=== PATIENT | male | born 1960 | race African-American/Black ===

== ENCOUNTER 2017-04-12 16:33 | Inpatient (IN) | payer OTHER ==
[2017-04-12 18:27] VITALS: BMI 34.0
--- NOTE | 2017-04-12 20:30 | HP ---
CIWA Score - CIWA Score Nausea/Vomitin-Int. 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 SHE REPORTS SHE COMPLETED DETOX AND REHAB LAST IN [place]. LONGEST PERIOD SOBER HAS BEEN 3 YEARS. Exam Limitations: No Limitations - Ebola screening Have you traveled outside of the country in the last 21 days: No Have you had contact with anyone from an Ebola affected area: No Have you been sick,other than usual withdrawal symptoms: No Do you have a fever: No - Review of Systems Constitutional: Loss of Appetite EENT: reports: Nose Congestion Respiratory: reports: Wheezing Cardiac: reports: No Symptoms Reported GI: reports: Diarrhea : reports: No Symptoms Reported Musculoskeletal: reports: No Symptoms Reported Integumentary: reports: No Symptoms Reported Neuro: reports: No Symptoms reported Endocrine: reports: No Symptoms Reported Hematology: reports: No Symptoms Reported Psychiatric: reports: Judgement Intact, Mood/Affect Appropiate, other ( SCHIZOPHRENIA) Other Systems: Reviewed and Negative Patient History - Patient Medical History Hx Anemia: No Hx Asthma: Yes Hx Chronic Obstructive Pulmonary Disease (COPD): No Hx Cancer: No Hx Cardiac Disorders: No Hx Congestive Heart Failure: No Hx Hypertension: Yes Hx Hypercholesterolemia: No Hx Pacemaker: No HX Cerebrovascular Accident: No Hx Seizures: No Hx Dementia: No Hx Diabetes: No Hx Gastrointestinal Disorders: No Hx Liver Disease: Yes (HEP C ) Hx Genitourinary Disorders: No Hx Sexually Transmitted Disorders: No Hx Renal Disease (ESRD): No Hx Thyroid Disease: No Hx Human Immunodeficiency Virus (HIV): No Hx Hepatitis C: Yes (NOT TREATED ) Hx Depression: No Hx Suicide Attempt: No Hx Bipolar Disorder: No Hx Schizophrenia: Yes - Patient Surgical History Past Surgical History: Yes Hx Neurologic Surgery: Yes (SKULL AND JAW FX REPAIR ) Anesthesia Reaction: No - PPD History Previous Implant?: No PPD to be Administered?: Yes - Reproductive History Patient is a Female of Child Bearing Age (11 -55 yrs old): No - Smoking Cessation Smoking history: Current every day smoker Have you smoked in the past 12 months: Yes Aproximately how many cigarettes per day: 3 Initiated information on smoking cessation: Yes 'Breaking Loose' booklet given: 04/12/17 - Substance & Tx. History Hx Alcohol Use: Yes Hx Substance Use: Yes Substance Use Type: Alcohol, Cocaine, Marijuana Hx Substance Use Treatment: Yes (DETOX AND REHAB IN [place] IN 2016) - Substances Abused Alcohol Route: Oral Frequency: Daily Amount used: 1/5 VODKA+ ONE 6 PACK OF BEER Age of first use: 22 Date of Last Use: 04/11/17 Crack Route: Smoking Frequency: Daily Amount used: $100 Age of first use: 45 Date of Last Use: 04/11/17 Marijuana/Hashish Route: Oral Frequency: Daily Amount used: $20 Age of first use: 17 Date of Last Use: 04/11/17 Family Disease History - Family Disease History Family Disease History: Heart Disease: Mother (), CA: Father ( ) , Other: Sister (COCAINE DEPENDENCE) Admission Physical Exam [facility] - Vital Signs Vital Signs: Vital Signs - 24 hr 04/12/17 18:23 Temperature 97.2 F L Pulse Rate 70 Respiratory 20 Rate Blood Pressure 138/86 - Physical General Appearance: Yes: Disheveled HEENTM: Yes: Hearing grossly Normal, Normocephalic, Normal Voice Respiratory: Yes: Chest Non-Tender, Lungs Clear, Normal Breath Sounds, No Respiratory Distress, No Accessory Muscle Use Neck: Yes: No masses,lesions,Nodules, Trachea in good position Breast: Yes: Breast Exam Deferred Cardiology: Yes: Regular Rhythm, Regular Rate Abdominal: Yes: Normal Bowel Sounds, Non Tender Genitourinary: Yes: Other (NO COMPLAINTS REPORTED) Back: Yes: Normal Inspection Musculoskeletal: Yes: full range of Motion, Gait Steady, Pelvis Stable Extremities: Yes: Normal Inspection, Normal Range of Motion, Non-Tender Neurological: Yes: Fully Oriented, Alert, Normal Mood/Affect, Normal Response Integumentary: Yes: Normal Color, Dry, Warm Lymphatic: Yes: Within Normal Limits - Diagnostic (1) Alcohol dependence with uncomplicated withdrawal Current Visit: Yes Status: Chronic (2) Cocaine dependence, uncomplicated Current Visit: Yes Status: Chronic (3) Cannabis dependence Current Visit: Yes Status: Chronic (4) Hypertension Current Visit: Yes Status: Chronic (5) Nicotine dependence Current Visit: Yes Status: Chronic (6) Asthma Current Visit: Yes Status: Chronic (7) Hepatitis C Current Visit: Yes Status: Chronic Cleared for Admission [facility] - Detox or Rehab [facility] Level of Care: Medically Managed Detox Regimen/Protocol: Librium [facility] Breath Alcohol Content Breath Alcohol Content: 0 Urine Drug Screen - Results Drug Screen Negative: No Urine Drug Screen Results: THC-Marijuana, HILL-Cocaine
[2017-04-12] MEDS ORDERED: P-EPHED 60MG/TRIPROLIDI 2.5MG TABLET PO PRN (20:48)
[2017-04-12] MEDS ORDERED: guaiFENesin/D-METHORPHAN HB 10 ML UNIT-DOSE CUPS PO PRN (20:48)
[2017-04-12] MEDS ORDERED: MAGNESIUM CITRATE 300 ML BOTTLE PO PRN (20:48)
[2017-04-12] MEDS ORDERED: ACETAMINOPHEN 325 MG TABLET (FP) PO PRN (20:48)
[2017-04-12] MEDS ORDERED: hydrOXYzine PAMOATE 50 MG CAPSULE (FP) PO PRN (20:48)
[2017-04-12] MEDS ORDERED: NICOTINE POLACRILEX 2 MG GUM BUC PRN (20:48)
[2017-04-12] MEDS ORDERED: chlordiazePOXIDE HCL 25 MG CAPSULE PO PRN (20:48)
[2017-04-12] MEDS ORDERED: IBUPROFEN 400 MG TABLET (FP) PO PRN (20:48)
[2017-04-12] MEDS ORDERED: MAGNESIUM HYDROX 2400MG/30ML ORAL SUSPENSION 30 ML CUP PO PRN (20:48)
[2017-04-12] MEDS ORDERED: MAG HYDROX/AL HYDROX/SIMETH 30 ML UNIT-DOSE CUP PO PRN (20:48)
[2017-04-12] MEDS ORDERED: chlordiazePOXIDE HCL 25 MG CAPSULE PO ONE (20:48)
[2017-04-12] MEDS ORDERED: MENTHOL/PHENOL 1 EACH UD MM PRN (20:48)
[2017-04-12] MEDS ORDERED: LOPERAMIDE HCL 2 MG CAPSULE PO PRN (20:48)
[2017-04-12] MEDS: chlordiazePOXIDE HCL 25 MG CAPSULE PO SCH (22:43)
[2017-04-12] MEDS: diphenhydrAMINE HCL 50 MG CAPSULE PO PRN (22:44)
[2017-04-12] MEDS: THIAMINE HCL 100 MG TABLET (FP) PO SCH (22:44)
[2017-04-12 23:36] LABS: URINE APPEARANCE SLCLOUDY; URINE BILIRUBIN NEGATIVE (NEGATIVE); URINE BLOOD NEGATIVE (NEGATIVE); URINE COLOR YELLOW; URINE GLUCOSE (UA) NEGATIVE (NEGATIVE); URINE KETONE NEGATIVE (NEGATIVE); URINE NITRITE POSITIVE (NEGATIVE)
[2017-04-12 23:39] LABS: URINE PROTEIN 1+ (NEGATIVE)
[2017-04-12 23:44] LABS: URINE BACTERIA MODERATE /hpf (NONE SEEN); URINE MUCUS RARE; URINE RBC 1 /hpf (0-3)
[2017-04-13] MEDS: chlordiazePOXIDE HCL 25 MG CAPSULE PO SCH ×4 (06:12→22:38)
[2017-04-13] MEDS: ALBUTEROL SO4 18 GM HFA INHALER IH PRN ×2 (06:15→22:39)
[2017-04-13] MEDS: NICOTINE 14 MG/24 HOURS TOPICAL PATCH TD SCH (10:54)
[2017-04-13] MEDS: PRENATAL VITAMINS W/ FOLIC ACID TABLET (FP) PO SCH (10:55)
[2017-04-13 11:03] LABS: MCH 29.5 pg (25.7-33.7); MCHC 32.4 g/dl (32.0-35.9); MEAN CELL VOLUME 90.9 fl (80-96); MEAN PLT VOLUME 7.9 fl (7.5-11.1); PLATELET COUNT 274 K/MM3 (134-434); RDW 12.5 % (11.9-15.9); WHITE BLOOD COUNT 6.9 K/mm3 (4.0-10.0)
[2017-04-13 11:16] LABS: ALBUMIN 3.5 g/dl (3.4-5.0); ALK PHOS 88 U/L (45-117); ANION GAP 9 (8-16); BILIRUBIN,TOTAL 0.6 mg/dL (0.2-1.0); CALCIUM 9.1 mg/dL (8.5-10.1); CO2 26 mmol/L (21-32); CREATININE 0.9 mg/dL (0.7-1.3); GLUCOSE,RANDOM 110 mg/dL (74-106); SGOT/AST 60 U/L (15-37); SGPT/ALT 90 U/L (12-78); TOT PROT 7.3 g/dl (6.4-8.2)
[2017-04-13 12:07] LABS: URINE LEUK ESTERASE TRACE (NEGATIVE)
--- NOTE | 2017-04-13 12:52 | EKG ---
Test Reason : Blood Pressure : / mmHG Vent. Rate : 063 BPM Atrial Rate : 063 BPM P-R Int : 196 ms QRS Dur : 094 ms QT Int : 440 ms P-R-T Axes : 056 004 007 degrees QTc Int : 450 ms NORMAL SINUS RHYTHM SEPTAL INFARCT , AGE UNDETERMINED ABNORMAL ECG NO PREVIOUS ECGS AVAILABLE Confirmed by KWAKU CALVERT MD ([id number]) on 04/13/2017 12:52:04 PM Referred By: Confirmed By:KWAKU CALVERT MD
[2017-04-13 13:25] LABS: HIV 1 & 2 AB NEGATIVE; HIV 1 AGp24 NEGATIVE
--- NOTE | 2017-04-13 15:56 | PN ---
[facility] CIWA - CIWA Score Nausea/Vomitin Muscle Tremors: 3 Anxiety: 3 Agitation: 3 Paroxysmal Sweats: 1-Minimal Palms Moist Orientation: 0-Oriented Tacttile Disturbances: 1-Very Mild Itch/Numbness Auditory Disturbances: 1-Very Mild Visual Disturbances: 0-None Headache: 2-Mild CIWA-Ar Total Score: 17 BHS Progress Note (SOAP) Subjective: alert,irritable,anxious,interrupted sleep,tremor Objective: 04/13/17 15:57 Vital Signs Temperature 97.5 F L 04/13/17 13:51 Pulse Rate 83 04/13/17 13:51 Respiratory Rate 18 04/13/17 13:51 Blood Pressure 151/78 04/13/17 13:51 O2 Sat by Pulse Oximetry (%) ekg inverted t in 3 no chest pain,no sob,no dizziness Laboratory Last Values WBC 6.9 K/mm3 (4.0-10.0) 04/13/17 08:00 RBC 4.53 M/mm3 (4.00-5.60) 04/13/17 08:00 Hgb 13.4 GM/dL (11.7-16.9) 04/13/17 08:00 Hct 41.2 % (35.4-49) 04/13/17 08:00 MCV 90.9 fl (80-96) 04/13/17 08:00 MCH 29.5 pg (25.7-33.7) 04/13/17 08:00 MCHC 32.4 g/dl (32.0-35.9) 04/13/17 08:00 RDW 12.5 % (11.9-15.9) 04/13/17 08:00 Plt Count 274 K/MM3 (134-434) 04/13/17 08:00 MPV 7.9 fl (7.5-11.1) 04/13/17 08:00 Sodium 140 mmol/L (136-145) 04/13/17 08:00 Potassium 4.1 mmol/L (3.5-5.1) 04/13/17 08:00 Chloride 105 mmol/L (98-107) 04/13/17 08:00 Carbon Dioxide 26 mmol/L (21-32) 04/13/17 08:00 Anion Gap 9 (8-16) 04/13/17 08:00 BUN 15 mg/dL (7-18) 04/13/17 08:00 Creatinine 0.9 mg/dL (0.7-1.3) 04/13/17 08:00 Creat Clearance w eGFR > 60 (>60) 04/13/17 08:00 Random Glucose 110 mg/dL (74-106) H 04/13/17 08:00 Calcium 9.1 mg/dL (8.5-10.1) 04/13/17 08:00 Total Bilirubin 0.6 mg/dL (0.2-1.0) 04/13/17 08:00 AST 60 U/L (15-37) H 04/13/17 08:00 ALT 90 U/L (12-78) H 04/13/17 08:00 Alkaline Phosphatase 88 U/L (45-117) 04/13/17 08:00 Total Protein 7.3 g/dl (6.4-8.2) 04/13/17 08:00 Albumin 3.5 g/dl (3.4-5.0) 04/13/17 08:00 Urine Color Yellow 04/12/17 23:00 Urine Appearance Slcloudy 04/12/17 23:00 Urine pH 5.0 (5.0-8.0) 04/12/17 23:00 Ur Specific [place] 1.015 (1.005-1.025) 04/12/17 23:00 Urine Protein 1+ (NEGATIVE) H 04/12/17 23:00 Urine Glucose (UA) Negative (NEGATIVE) 04/12/17 23:00 Urine Ketones Negative (NEGATIVE) 04/12/17 23:00 Urine Blood Negative (NEGATIVE) 04/12/17 23:00 Urine Nitrite Positive (NEGATIVE) 04/12/17 23:00 Urine Bilirubin Negative (NEGATIVE) 04/12/17 23:00 Urine Urobilinogen 2.0 mg/dL (0.2-1.0) 04/12/17 23:00 Ur Leukocyte Esterase Trace (NEGATIVE) H 04/12/17 23:00 Urine RBC 1 /hpf (0-3) 04/12/17 23:00 Ur Epithelial Cells Rare /hpf (FEW) 04/12/17 23:00 Urine Bacteria Moderate /hpf (NONE SEEN) 04/12/17 23:00 Urine Mucus Rare 04/12/17 23:00 RPR Titer Nonreactive (NONREACTIVE) 04/13/17 08:00 HIV 1&2 Antibody Screen Negative 04/13/17 08:00 HIV P24 Antigen Negative 04/13/17 08:00 Assessment: 04/13/17 15:58 withdrawal symptom Plan: continue detox
--- NOTE | 2017-04-13 17:59 | CONSULT ---
[facility] Psychiatric Consult - Data Date of interview: 04/13/17 Admission source: [facility] Identifying data: Readmission to [facility] [place] for this 56 y/o AA male seeking detox treatment on for alcohol,cocaine and cannabis dependence.Patient is single without children,homeless,unemployed and supported on SSD benefits. Substance Abuse History: Discussed with the patient in this interview.Agrees with this report. Smoking Cessation. Smoking history: Current every day smoker. Have you smoked in the past 12 months: Yes. Aproximately how many cigarettes per day: 3. Initiated information on smoking cessation: Yes. ' Breaking Loose' booklet given: 04/12/17. - Substance & Tx. History. Hx Alcohol Use: Yes. Hx Substance Use: Yes. Substance Use Type: Alcohol, Cocaine , Marijuana. Hx Substance Use Treatment: Yes (DETOX AND REHAB IN [place] IN 2016). - Substances Abused. Alcohol. Route: Oral. Frequency: Daily. Amount used: 1/5 VODKA+ ONE 6 PACK OF BEER. Age of first use: 22. Date of Last Use: 04/11/17. Crack. Route: Smoking. Frequency: Daily. Amount used: $100. Age of first use: 45. Date of Last Use: 04/11/17. Marijuana/Hashish. Route: Oral. Frequency: Daily. Amount used: $20. Age of first use: 17. Date of Last Use: 04/11/17 Medical History: Hypertension,hepatitis C,bronchial asthma and a history of neurosurgery (skull fracture) + orthosurgery (jaw).No allergies reported. Psychiatric History: Diagnosed with Schizophrenia.Prescribed risperdal + paxil ( 3 mg/hs and 10 mg respectively).Mr Orr admits to past psychiatric hospitalizations at [facility] in [facility].Enrolled in psychiatric OPD care at same institution.Date of last intake of medications : undetermined.Patient reports one suicide attempt (1999) via overdose with " heart " medications (trigger : of mother). Physical/Sexual Abuse/Trauma History: Patient denies history of abuse. Additional Comment: Urine Drug Screen Results: THC-Marijuana, HILL-Cocaine.Noted. Mental Status Exam - Mental Status Exam Alert and Oriented to: Time, Place, Person Cognitive Function: Grossly Intact Patient Appearance: Unkempt, Disheveled (obese) Mood: Withdrawn Affect: Mood Congruent Patient Behavior: Passive, Sedated (mildly sedated), Fatigued, Cooperative Speech Pattern: Delayed, Slurred (but coherent) Voice Loudness: Moderately Soft/Quiet Thought Process: Goal Oriented Thought Disorder: Not Present Hallucinations: Denies Suicidal Ideation: Denies Homicidal Ideation: Denies Insight/Judgement: Poor Sleep: Poorly (wants benadryl), Difficulty falling asleep Gait/Station: Other (not observed ; patient in bed through interview) Psychiatric Findings - Problem List ([place] 1, 2,3) (1) Alcohol dependence with uncomplicated withdrawal Current Visit: Yes Status: Acute (2) Cannabis dependence Current Visit: Yes Status: Acute (3) Cocaine dependence, uncomplicated Current Visit: Yes Status: Acute (4) Nicotine dependence Current Visit: Yes Status: Acute (5) History of schizophrenia Current Visit: Yes Status: Chronic Comment: On medications. (6) Asthma Current Visit: Yes Status: Chronic (7) Hepatitis C Current Visit: Yes Status: Chronic (8) Hypertension Current Visit: Yes Status: Chronic (9) Insomnia Current Visit: Yes Status: Acute - Initial Treatment Plan Initial Treatment Plan: Psychoeducation.Detoxification.Medications : risperdal 1mg po bid + paxil 10 mg po daily.Side effects/benefits discussed with the patient.He agrees to resume these medications.Observation.Pharmacy claims : not available.
[2017-04-13] MEDS: risperiDONE 1 MG TABLET (FP) PO SCH (22:38)
[2017-04-13] MEDS: THIAMINE HCL 100 MG TABLET (FP) PO SCH (22:38)
[2017-04-14] MEDS: chlordiazePOXIDE HCL 25 MG CAPSULE PO SCH ×3 (06:00→17:59)
[2017-04-14] MEDS: PRENATAL VITAMINS W/ FOLIC ACID TABLET (FP) PO SCH (10:59)
[2017-04-14] MEDS: NICOTINE 14 MG/24 HOURS TOPICAL PATCH TD SCH (11:00)
[2017-04-14] MEDS: risperiDONE 1 MG TABLET (FP) PO SCH ×2 (11:00→23:06)
[2017-04-14] MEDS: PARoxetine HCL 10 MG TABLET (FP) PO SCH (11:00)
[2017-04-14] MEDS: ALBUTEROL SO4 18 GM HFA INHALER IH PRN (11:04)
--- NOTE | 2017-04-14 15:30 | PN ---
S CIWA - CIWA Score Nausea/Vomitin Muscle Tremors: 3 Anxiety: 3 Agitation: 2 Paroxysmal Sweats: 1-Minimal Palms Moist Orientation: 0-Oriented Tacttile Disturbances: 1-Very Mild Itch/Numbness Auditory Disturbances: 1-Very Mild Visual Disturbances: 0-None Headache: 2-Mild CIWA-Ar Total Score: 16 BHS Progress Note (SOAP) Subjective: ALERT,IRRITABLE,ANXIOUS,INTERRUPTED SLEEP,TREMOR Objective: 04/14/17 15:27 Vital Signs Temperature 98.1 F 04/14/17 11:18 Pulse Rate 96 H 04/14/17 11:18 Respiratory Rate 20 04/14/17 11:18 Blood Pressure 119/86 04/14/17 11:18 O2 Sat by Pulse Oximetry (%) Laboratory Last Values WBC 6.9 K/mm3 (4.0-10.0) 04/13/17 08:00 RBC 4.53 M/mm3 (4.00-5.60) 04/13/17 08:00 Hgb 13.4 GM/dL (11.7-16.9) 04/13/17 08:00 Hct 41.2 % (35.4-49) 04/13/17 08:00 MCV 90.9 fl (80-96) 04/13/17 08:00 MCH 29.5 pg (25.7-33.7) 04/13/17 08:00 MCHC 32.4 g/dl (32.0-35.9) 04/13/17 08:00 RDW 12.5 % (11.9-15.9) 04/13/17 08:00 Plt Count 274 K/MM3 (134-434) 04/13/17 08:00 MPV 7.9 fl (7.5-11.1) 04/13/17 08:00 Sodium 140 mmol/L (136-145) 04/13/17 08:00 Potassium 4.1 mmol/L (3.5-5.1) 04/13/17 08:00 Chloride 105 mmol/L (98-107) 04/13/17 08:00 Carbon Dioxide 26 mmol/L (21-32) 04/13/17 08:00 Anion Gap 9 (8-16) 04/13/17 08:00 BUN 15 mg/dL (7-18) 04/13/17 08:00 Creatinine 0.9 mg/dL (0.7-1.3) 04/13/17 08:00 Creat Clearance w eGFR > 60 (>60) 04/13/17 08:00 Random Glucose 110 mg/dL (74-106) H 04/13/17 08:00 Calcium 9.1 mg/dL (8.5-10.1) 04/13/17 08:00 Total Bilirubin 0.6 mg/dL (0.2-1.0) 04/13/17 08:00 AST 60 U/L (15-37) H 04/13/17 08:00 ALT 90 U/L (12-78) H 04/13/17 08:00 Alkaline Phosphatase 88 U/L (45-117) 04/13/17 08:00 Total Protein 7.3 g/dl (6.4-8.2) 04/13/17 08:00 Albumin 3.5 g/dl (3.4-5.0) 04/13/17 08:00 Urine Color Yellow 04/12/17 23:00 Urine Appearance Slcloudy 04/12/17 23:00 Urine pH 5.0 (5.0-8.0) 04/12/17 23:00 Ur Specific [place] 1.015 (1.005-1.025) 04/12/17 23:00 Urine Protein 1+ (NEGATIVE) H 04/12/17 23:00 Urine Glucose (UA) Negative (NEGATIVE) 04/12/17 23:00 Urine Ketones Negative (NEGATIVE) 04/12/17 23:00 Urine Blood Negative (NEGATIVE) 04/12/17 23:00 Urine Nitrite Positive (NEGATIVE) 04/12/17 23:00 Urine Bilirubin Negative (NEGATIVE) 04/12/17 23:00 Urine Urobilinogen 2.0 mg/dL (0.2-1.0) 04/12/17 23:00 Ur Leukocyte Esterase Trace (NEGATIVE) H 04/12/17 23:00 Urine RBC 1 /hpf (0-3) 04/12/17 23:00 Ur Epithelial Cells Rare /hpf (FEW) 04/12/17 23:00 Urine Bacteria Moderate /hpf (NONE SEEN) 04/12/17 23:00 Urine Mucus Rare 04/12/17 23:00 RPR Titer Nonreactive (NONREACTIVE) 04/13/17 08:00 HIV 1&2 Antibody Screen Negative 04/13/17 08:00 HIV P24 Antigen Negative 04/13/17 08:00 Assessment: 04/14/17 15:29 WITHDRAWAL SYMPTOM Plan: CONTINUE DETOX
[2017-04-14] MEDS: chlordiazePOXIDE 5 MG CAPSULE PO SCH (23:06)
[2017-04-14] MEDS: THIAMINE HCL 100 MG TABLET (FP) PO SCH (23:07)
[2017-04-15] MEDS: chlordiazePOXIDE 5 MG CAPSULE PO SCH ×3 (06:00→17:15)
[2017-04-15] MEDS: risperiDONE 1 MG TABLET (FP) PO SCH ×2 (11:06→22:40)
[2017-04-15] MEDS: PRENATAL VITAMINS W/ FOLIC ACID TABLET (FP) PO SCH (11:06)
[2017-04-15] MEDS: PARoxetine HCL 10 MG TABLET (FP) PO SCH (11:06)
[2017-04-15] MEDS: NICOTINE 14 MG/24 HOURS TOPICAL PATCH TD SCH (11:07)
[2017-04-15] MEDS: ALBUTEROL SO4 18 GM HFA INHALER IH PRN (11:07)
--- NOTE | 2017-04-15 11:40 | PN ---
BHS Progress Note (SOAP) Subjective: agitation sweats Objective: 04/15/17 11:38 Vital Signs Temperature 97.9 F 04/15/17 11:23 Pulse Rate 98 H 04/15/17 11:23 Respiratory Rate 20 04/15/17 11:23 Blood Pressure 148/89 04/15/17 11:23 O2 Sat by Pulse Oximetry (%) aaox3 ambulating no acute distress Assessment: 04/15/17 11:39 mild withdrawal sx Plan: continue detox increase fluids d/c in am
[2017-04-15] MEDS: chlordiazePOXIDE HCL 10 MG CAPSULE PO SCH (22:40)
[2017-04-15] MEDS: THIAMINE HCL 100 MG TABLET (FP) PO SCH (22:40)
[2017-04-15] MEDS: diphenhydrAMINE HCL 50 MG CAPSULE PO PRN (22:41)
[2017-04-16] MEDS: chlordiazePOXIDE HCL 10 MG CAPSULE PO SCH ×2 (06:26→10:48)
--- NOTE | 2017-04-16 09:10 | DS ---
[facility] Detox Discharge Summary Admission Date: 04/12/17 Discharge Date: 04/16/17 - History Present History: Alcohol Dependence, Cannabis Dependence, Cocaine Dependence - Physical Exam Results Vital Signs: Vital Signs Temperature 98.0 F 04/16/17 06:55 Pulse Rate 84 04/16/17 06:55 Respiratory Rate 18 04/16/17 06:55 Blood Pressure 119/82 04/16/17 06:55 O2 Sat by Pulse Oximetry (%) - Treatment Hospital Course: Detox Protocol Followed, Detoxed Safely, Responded well, Discharged Condition Good, Rehab Referral Accepted - Medication Discharge Medications: Ambulatory Orders Diphenhydramine HCl [Benadryl -] 25 mg PO HS 04/12/17 Paroxetine HCl [Paxil -] 10 mg PO DAILY 04/12/17 Risperidone [Risperdal] 4 mg PO DAILY 04/12/17 Paroxetine HCl [Paxil -] 10 mg PO DAILY #30 tablet 04/14/17 Risperidone [Risperdal] 3 mg PO HS #30 tablet 04/14/17 - AMA Did Patient Leave Against Medical Advice: No
[2017-04-16] MEDS: PRENATAL VITAMINS W/ FOLIC ACID TABLET (FP) PO SCH (09:33)
[2017-04-16] MEDS: risperiDONE 1 MG TABLET (FP) PO SCH (09:33)
[2017-04-16] MEDS: PARoxetine HCL 10 MG TABLET (FP) PO SCH (09:33)
[2017-04-16] MEDS: NICOTINE 14 MG/24 HOURS TOPICAL PATCH TD SCH (09:34)
[2017-04-16 10:44] VITALS: BP 117/80; PULSE 97; TEMP 98.2
[2017-04-16 10:59] LABS: URINE WBC 26 /hpf (3-5)
== END 2017-04-16 10:40 | disposition home or self-care (01) | DRG 774 ==
LOC: YASAS 16:33 → Y6N 21:12
PROVIDERS: ADMIT Internal Medicine; ATTEND Internal Medicine
PROC: HZ2ZZZZ Detoxification Services for Substance Abuse Treatment (ICD-10-PCS; principal; 2017-04-12)
DX: F10.230 Alcohol dependence with withdrawal, uncomplicated (principal); F14.20 Cocaine dependence, uncomplicated; F12.20 Cannabis dependence, uncomplicated; F17.210 Nicotine dependence, cigarettes, uncomplicated; F20.9 Schizophrenia, unspecified; G47.00 Insomnia, unspecified; B18.2 Chronic viral hepatitis C; I10 Essential (primary) hypertension; J45.909 Unspecified asthma, uncomplicated
CPT/HCPCS: 36415; 80053; 81003; 81015; 85027; 86593; 87389; 93005; 93010; J2794

== ENCOUNTER 2017-05-28 21:55 | Inpatient (IN) | payer OTHER ==
[2017-05-28 21:59] VITALS: BMI 32.4
--- NOTE | 2017-05-28 23:34 | HP ---
CIWA Score - CIWA Score Nausea/Vomitin Muscle Tremors: 4-Moderate,w/Arms Extend Anxiety: 4-Mod. Anxious/Guarded Agitation: 5 Paroxysmal Sweats: 1-Minimal Palms Moist Orientation: 0-Oriented Tacttile Disturbances: 3-Moderate Itch/Numb/Burn Auditory Disturbances: 3-Moderate Harsh/Frighten Visual Disturbances: 3-Moderate Sensitivity Headache: 3-Moderate CIWA-Ar Total Score: 29 Admission ROS BHS - HPI Chief Complaint: c/o withdrawal sx's and alcohol dependence Allergies/Adverse Reactions: Allergies Allergy/AdvReac Type Severity Reaction Status Date / Time No Known Allergies Allergy Verified 04/12/17 20:27 History of Present Illness: 56 Y.O. MALE WITH ALCOHOLISM HERE FOR ADMISSION TO DETOX TXMENT. SELF REFERRED LAST HERE IN MARCH. REPORTS LONGEST CLEAN TIME 3 YEARS. Exam Limitations: No Limitations - Ebola screening Have you traveled outside of the country in the last 21 days: No Have you had contact with anyone from an Ebola affected area: No Have you been sick,other than usual withdrawal symptoms: No Do you have a fever: No - Review of Systems Constitutional: Malaise EENT: reports: Throat Pain Respiratory: reports: No Symptoms reported Cardiac: reports: No Symptoms Reported GI: reports: Diarrhea : reports: No Symptoms Reported Musculoskeletal: reports: No Symptoms Reported Integumentary: reports: No Symptoms Reported Neuro: reports: No Symptoms reported Endocrine: reports: No Symptoms Reported Hematology: reports: No Symptoms Reported Psychiatric: reports: No Sypmtoms Reported Other Systems: Reviewed and Negative Patient History - Patient Medical History Hx Anemia: No Hx Asthma: Yes Hx Chronic Obstructive Pulmonary Disease (COPD): No Hx Cancer: No Hx Cardiac Disorders: No Hx Congestive Heart Failure: No Hx Hypertension: Yes Hx Hypercholesterolemia: No Hx Pacemaker: No HX Cerebrovascular Accident: No Hx Seizures: No Hx Dementia: No Hx Diabetes: No Hx Gastrointestinal Disorders: No Hx Liver Disease: Yes (HEP C ) Hx Genitourinary Disorders: No Hx Sexually Transmitted Disorders: No Hx Renal Disease (ESRD): No Hx Thyroid Disease: No Hx Human Immunodeficiency Virus (HIV): No Hx Hepatitis C: Yes (NOT TREATED ) Hx Depression: Yes Hx Suicide Attempt: No Hx Bipolar Disorder: No Hx Schizophrenia: Yes Other Medical History: DENIES - Patient Surgical History Past Surgical History: Yes Hx Neurologic Surgery: Yes (SKULL AND JAW FX REPAIR ) Hx Cataract Extraction: No Hx Cardiac Surgery: No Hx Lung Surgery: No Hx Breast Surgery: No Hx Breast Biopsy: No Hx Abdominal Surgery: No Hx Appendectomy: No Hx Cholecystectomy: No Hx Genitourinary Surgery: No Hx Section: No Hx Orthopedic Surgery: No Anesthesia Reaction: No - PPD History Previous Implant?: Yes Documented Results: Negative w/proof Implanted On Prior [facility] Admission?: Yes Date: 04/14/17 Results: OMM PPD to be Administered?: No - Smoking Cessation Smoking history: Current every day smoker Have you smoked in the past 12 months: Yes Aproximately how many cigarettes per day: 10 Cigars Per Day: 0 Hx Chewing Tobacco Use: No Initiated information on smoking cessation: Yes 'Breaking Loose' booklet given: 05/28/17 - Substance & Tx. History Hx Alcohol Use: Yes Hx Substance Use: Yes Substance Use Type: Cocaine, Marijuana Hx Substance Use Treatment: Yes ([facility]) - Substances Abused VODKA Route: Oral Frequency: Daily Amount used: 2 PINTS Age of first use: 14 Date of Last Use: 05/27/17 Family Disease History - Family Disease History Family Disease History: Heart Disease: Mother (), CA: Father ( ) , Other: Sister (COCAINE DEPENDENCE) Admission Physical Exam S - Vital Signs Vital Signs: Vital Signs - 24 hr 05/28/17 21:55 Temperature 98.2 F Pulse Rate 83 Respiratory 16 Rate Blood Pressure 128/79 - Physical General Appearance: Yes: Appropriately Dressed, Mild Distress, Tremorous, Anxious HEENTM: Yes: EOMI, Normocephalic, Normal Voice, [place], Pharynx Normal Respiratory: Yes: Chest Non-Tender, Lungs Clear, Normal Breath Sounds, No Respiratory Distress, No Accessory Muscle Use Neck: Yes: No masses,lesions,Nodules, Supple, Trachea in good position Breast: Yes: Breast Exam Deferred Cardiology: Yes: Regular Rhythm, Regular Rate, S1, S2 Abdominal: Yes: Normal Bowel Sounds, Non Tender, Protuberent Genitourinary: Yes: Within Normal Limits Back: Yes: Within Normal Limits Musculoskeletal: Yes: full range of Motion, Gait Steady Extremities: Yes: Normal Range of Motion, Non-Tender, Tremors Neurological: Yes: Alert, Motor Strength 5/5 Integumentary: Yes: Normal Color, Dry, Warm Lymphatic: Yes: Within Normal Limits - Diagnostic (1) Alcohol dependence with uncomplicated withdrawal Current Visit: No Status: Chronic (2) Cannabis dependence Current Visit: No Status: Chronic (3) Cocaine dependence, uncomplicated Current Visit: No Status: Chronic (4) Nicotine dependence Current Visit: No Status: Chronic Qualifiers: Nicotine product type: cigarettes Substance use status: uncomplicated Qualified Code(s): F17.210 - Nicotine dependence, cigarettes, uncomplicated (5) Asthma Current Visit: No Status: Chronic Qualifiers: Asthma severity: mild Asthma persistence: intermittent Asthma complication type: uncomplicated Qualified Code(s): J45.20 - Mild intermittent asthma, uncomplicated (6) Hepatitis C Current Visit: No Status: Chronic Qualifiers: Viral hepatitis chronicity: chronic Hepatic coma status: without hepatic coma Qualified Code(s): B18.2 - Chronic viral hepatitis C (7) Hypertension Current Visit: No Status: Chronic Qualifiers: Hypertension type: essential hypertension Qualified Code(s): I10 - Essential (primary) hypertension Cleared for Admission BHS - Detox or Rehab [facility] Level of Care: Medically Managed Detox Regimen/Protocol: Librium [facility] Breath Alcohol Content Breath Alcohol Content: 0 Urine Drug Screen - Results Drug Screen Negative: No Urine Drug Screen Results: THC-Marijuana, HILL-Cocaine, BZO-Benzodiazepines
[2017-05-28] MEDS ORDERED: IBUPROFEN 400 MG TABLET (FP) PO PRN (23:50)
[2017-05-28] MEDS ORDERED: chlordiazePOXIDE HCL 25 MG CAPSULE PO PRN (23:50)
[2017-05-28] MEDS ORDERED: MENTHOL/PHENOL 1 EACH UD MM PRN (23:50)
[2017-05-28] MEDS ORDERED: hydrOXYzine PAMOATE 50 MG CAPSULE (FP) PO PRN (23:50)
[2017-05-28] MEDS ORDERED: NICOTINE POLACRILEX 2 MG GUM BC PRN (23:50)
[2017-05-28] MEDS ORDERED: MAGNESIUM HYDROX 2400MG/30ML ORAL SUSPENSION 30 ML CUP PO PRN (23:50)
[2017-05-28] MEDS ORDERED: chlordiazePOXIDE HCL 25 MG CAPSULE PO ONE (23:50)
[2017-05-28] MEDS ORDERED: LOPERAMIDE HCL 2 MG CAPSULE PO PRN (23:50)
[2017-05-28] MEDS ORDERED: MAGNESIUM CITRATE 300 ML BOTTLE PO PRN (23:50)
[2017-05-28] MEDS ORDERED: P-EPHED 60MG/TRIPROLIDI 2.5MG TABLET PO PRN (23:50)
[2017-05-28] MEDS ORDERED: guaiFENesin/D-METHORPHAN HB 10 ML UNIT-DOSE CUPS PO PRN (23:50)
[2017-05-28] MEDS ORDERED: ACETAMINOPHEN 325 MG TABLET (FP) PO PRN (23:50)
[2017-05-28] MEDS ORDERED: MAG HYDROX/AL HYDROX/SIMETH 30 ML UNIT-DOSE CUP PO PRN (23:50)
[2017-05-28] MEDS ORDERED: ALBUTEROL SO4 2.5/IPRATROPIUM 0.5 INH SOL 3 ML VIAL.NEB. NEB PRN (23:53)
[2017-05-29] MEDS: chlordiazePOXIDE HCL 25 MG CAPSULE PO SCH ×5 (00:43→22:20)
[2017-05-29 10:10] LABS: MCH 29.9 pg (25.7-33.7); MCHC 32.7 g/dl (32.0-35.9); MEAN CELL VOLUME 91.5 fl (80-96); MEAN PLT VOLUME 8.1 fl (7.5-11.1); PLATELET COUNT 268 K/MM3 (134-434); RDW 12.7 % (11.9-15.9); WHITE BLOOD COUNT 6.6 K/mm3 (4.0-10.0)
[2017-05-29] MEDS: PRENATAL VITAMINS W/ FOLIC ACID TABLET (FP) PO SCH (10:32)
[2017-05-29] MEDS: NICOTINE 14 MG/24 HOURS TOPICAL PATCH TD SCH (10:33)
[2017-05-29 10:43] LABS: ALBUMIN 3.4 g/dl (3.4-5.0); ALK PHOS 102 U/L (45-117); ANION GAP 8 (8-16); BILIRUBIN,TOTAL 0.8 mg/dL (0.2-1.0); CALCIUM 8.7 mg/dL (8.5-10.1); CO2 24 mmol/L (21-32); CREATININE 0.9 mg/dL (0.7-1.3); GLUCOSE,RANDOM 133 mg/dL (74-106); SGOT/AST 35 U/L (15-37); SGPT/ALT 79 U/L (12-78); TOT PROT 7.1 g/dl (6.4-8.2)
[2017-05-29 10:56] LABS: HIV 1 & 2 AB NEGATIVE; HIV 1 AGp24 NEGATIVE
--- NOTE | 2017-05-29 12:49 | EKG ---
Test Reason : Blood Pressure : / mmHG Vent. Rate : 075 BPM Atrial Rate : 075 BPM P-R Int : 184 ms QRS Dur : 088 ms QT Int : 428 ms P-R-T Axes : 048 007 019 degrees QTc Int : 477 ms NORMAL SINUS RHYTHM NORMAL ECG WHEN COMPARED WITH ECG OF 12-APR-2017 21:39, CRITERIA FOR SEPTAL INFARCT ARE NO LONGER PRESENT Confirmed by SAI NGUYỄN MD ([id number]) on 05/29/2017 12:49:10 PM Referred By: Confirmed By:SAI NGUYỄN MD
--- NOTE | 2017-05-29 13:00 | PN ---
S CIWA - CIWA Score Nausea/Vomitin-No Nausea/No Vomiting Muscle Tremors: 4-Moderate,w/Arms Extend Anxiety: 4-Mod. Anxious/Guarded Agitation: 4-Moderately Restless Paroxysmal Sweats: 3 Orientation: 0-Oriented Tacttile Disturbances: 0-None Auditory Disturbances: 0-None Visual Disturbances: 0-None Headache: 1-Very Mild CIWA-Ar Total Score: 16 BHS Progress Note (SOAP) Subjective: irritable agitation sweats shakes chills restless interrupted sleep Objective: 05/29/17 12:59 Vital Signs Temperature 97.5 F L 05/29/17 10:00 Pulse Rate 86 05/29/17 10:00 Respiratory Rate 18 05/29/17 10:00 Blood Pressure 143/90 05/29/17 10:00 O2 Sat by Pulse Oximetry (%) Laboratory Tests 05/29/17 05/29/17 05/29/17 07:00 07:00 07:00 WBC 6.6 RBC 4.49 Hgb 13.4 Hct 41.1 MCV 91.5 MCH 29.9 MCHC 32.7 RDW 12.7 Plt Count 268 MPV 8.1 Sodium 142 Potassium 3.6 Chloride 110 H Carbon Dioxide 24 Anion Gap 8 BUN 11 D Creatinine 0.9 Creat Clearance w eGFR > 60 Random Glucose 133 H D Calcium 8.7 Total Bilirubin 0.8 D AST 35 D ALT 79 H Alkaline Phosphatase 102 Total Protein 7.1 Albumin 3.4 RPR Titer Nonreactive HIV 1&2 Antibody Screen HIV P24 Antigen 05/29/17 07:00 WBC RBC Hgb Hct MCV MCH MCHC RDW Plt Count MPV Sodium Potassium Chloride Carbon Dioxide Anion Gap BUN Creatinine Creat Clearance w eGFR Random Glucose Calcium Total Bilirubin AST ALT Alkaline Phosphatase Total Protein Albumin RPR Titer HIV 1&2 Antibody Screen Negative HIV P24 Antigen Negative aaox3 ambulating no acute distress Assessment: 05/29/17 12:59 withdrawal sx Plan: continue detox increase fluids
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
--- NOTE | 2017-05-29 19:18 | PN ---
[facility] Progress Note Note: Psychiatry Attending's note : Chart reviewed.Previous records revisited. 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 Consult by GRIS Bhatti : appreciated.Discussed with telegraphic typewriter mechanic. Met with patient at bedside this evening.Found resting comfortably in bed. Awake.No complaints offered.Feels well.Cooperative with interviewer. Denies hallucinations.Mr Orr denies suicidal or homicidal ideation. No intent or plan.Agreable with current medication regimen (paxil + risperdal). I agree with GRIS Bhatti's findings + treatment plan.Will follow progress.. Risperdal will be titrated up to 3 mg orally at bedtime.Normal vitals.
[2017-05-29] MEDS: risperiDONE 1 MG TABLET (FP) PO SCH (22:20)
[2017-05-29] MEDS: THIAMINE HCL 100 MG TABLET (FP) PO SCH (22:20)
[2017-05-29 22:25] LABS: URINE APPEARANCE CLOUDY; URINE BILIRUBIN NEGATIVE (NEGATIVE); URINE BLOOD NEGATIVE (NEGATIVE); URINE COLOR YELLOW; URINE GLUCOSE (UA) NEGATIVE (NEGATIVE); URINE KETONE NEGATIVE (NEGATIVE); URINE NITRITE NEGATIVE (NEGATIVE); URINE PROTEIN NEGATIVE (NEGATIVE); URINE UROBILINOGEN NEGATIVE mg/dL (0.2-1.0)
[2017-05-30] MEDS: chlordiazePOXIDE HCL 25 MG CAPSULE PO SCH ×3 (05:33→17:39)
[2017-05-30] MEDS ORDERED: PARoxetine HCL 10 MG TABLET (FP) PO SCH (10:00)
[2017-05-30] MEDS: PRENATAL VITAMINS W/ FOLIC ACID TABLET (FP) PO SCH (10:38)
[2017-05-30] MEDS: NICOTINE 14 MG/24 HOURS TOPICAL PATCH TD SCH (10:40)
[2017-05-30] MEDS ORDERED: PNEUMOCOCCAL 23 VACCINE 0.5 ML VIAL IM ONE (12:00)
[2017-05-30] MEDS ORDERED: PNEUMOC 13-VAL CONJ-DIP CRM/PF 0.5 ML DISP.SYRIN IM ONE (12:00)
--- NOTE | 2017-05-30 12:37 | PN ---
S CIWA - CIWA Score Nausea/Vomitin-No Nausea/No Vomiting Muscle Tremors: 4-Moderate,w/Arms Extend Anxiety: 2 Agitation: 3 Paroxysmal Sweats: 3 Orientation: 0-Oriented Tacttile Disturbances: 0-None Auditory Disturbances: 0-None Visual Disturbances: 0-None Headache: 0-None Present CIWA-Ar Total Score: 12 BHS Progress Note (SOAP) Subjective: tired sweats interrupted sleep irritable Objective: 05/30/17 12:36 Vital Signs Temperature 96.6 F L 05/30/17 09:29 Pulse Rate 101 H 05/30/17 09:29 Respiratory Rate 18 05/30/17 09:29 Blood Pressure 138/81 05/30/17 09:29 O2 Sat by Pulse Oximetry (%) Laboratory Tests 05/29/17 05/29/17 05/29/17 07:00 07:00 07:00 WBC 6.6 RBC 4.49 Hgb 13.4 Hct 41.1 MCV 91.5 MCH 29.9 MCHC 32.7 RDW 12.7 Plt Count 268 MPV 8.1 Sodium 142 Potassium 3.6 Chloride 110 H Carbon Dioxide 24 Anion Gap 8 BUN 11 D Creatinine 0.9 Creat Clearance w eGFR > 60 Random Glucose 133 H D Calcium 8.7 Total Bilirubin 0.8 D AST 35 D ALT 79 H Alkaline Phosphatase 102 Total Protein 7.1 Albumin 3.4 Urine Color Urine Appearance Urine pH Ur Specific [place] Urine Protein Urine Glucose (UA) Urine Ketones Urine Blood Urine Nitrite Urine Bilirubin Urine Urobilinogen RPR Titer Nonreactive HIV 1&2 Antibody Screen HIV P24 Antigen 05/29/17 05/29/17 07:00 15:00 WBC RBC Hgb Hct MCV MCH MCHC RDW Plt Count MPV Sodium Potassium Chloride Carbon Dioxide Anion Gap BUN Creatinine Creat Clearance w eGFR Random Glucose Calcium Total Bilirubin AST ALT Alkaline Phosphatase Total Protein Albumin Urine Color Yellow Urine Appearance Cloudy Urine pH 5.0 Ur Specific [place] 1.009 Urine Protein Negative Urine Glucose (UA) Negative Urine Ketones Negative Urine Blood Negative Urine Nitrite Negative Urine Bilirubin Negative Urine Urobilinogen Negative RPR Titer HIV 1&2 Antibody Screen Negative HIV P24 Antigen Negative aaox3 ambulating no acute distress Assessment: 05/30/17 12:36 withdrawal sx Plan: continue detox increase fluids
[2017-05-30 13:32] LABS: URINE LEUK ESTERASE 1+ (NEGATIVE)
[2017-05-30 13:58] LABS: URINE APPEARANCE CLOUDY; URINE BILIRUBIN NEGATIVE (NEGATIVE); URINE BLOOD 1+ (NEGATIVE); URINE COLOR YELLOW; URINE GLUCOSE (UA) NEGATIVE (NEGATIVE); URINE KETONE NEGATIVE (NEGATIVE); URINE NITRITE POSITIVE (NEGATIVE); URINE PROTEIN NEGATIVE (NEGATIVE); URINE UROBILINOGEN NEGATIVE mg/dL (0.2-1.0)
[2017-05-30 14:08] LABS: URINE BACTERIA RARE /hpf (NONE SEEN); URINE MUCUS RARE; URINE RBC 1 /hpf (0-3); URINE WBC 289 /hpf (3-5)
--- NOTE | 2017-05-30 17:29 | PN ---
S Progress Note Note: Spoke to patient near bedside. Pt. reported positive effect after receiving Risperdal 1mg and Paxil 10mg. Cost Analyst asked patient if he would like a prescription for risperdal 1mg and paxil 10mg. Pt. replied, " no, i will receive my prescription from my out patient psychiatrist after discharge from here." Will continue to monitor patient.
[2017-05-30 19:35] LABS: URINE LEUK ESTERASE 3+ (NEGATIVE)
[2017-05-30 22:06] LABS: URINE RBC 0-2 /hpf (0-3); URINE WBC 40-60 (0-2)
[2017-05-30 22:07] LABS: URINE BACTERIA MANY /hpf (NEGATIVE)
[2017-05-30] MEDS: risperiDONE 1 MG TABLET (FP) PO SCH (22:27)
[2017-05-30] MEDS: chlordiazePOXIDE 5 MG CAPSULE PO SCH (22:27)
[2017-05-30] MEDS: THIAMINE HCL 100 MG TABLET (FP) PO SCH (22:27)
[2017-05-31] MEDS: chlordiazePOXIDE 5 MG CAPSULE PO SCH (06:22)
[2017-05-31 06:39] VITALS: BP 134/75; PULSE 93; TEMP 98.1
--- NOTE | 2017-05-31 09:33 | DS ---
[facility] Detox Discharge Summary Admission Date: 05/28/17 Discharge Date: 05/31/17 - History Present History: Alcohol Dependence, Cannabis Dependence, Cocaine Dependence Additional Comments: Patient is moving to [place] today, refuses aftercar requesting accelearted detox protocol to be discharged today, has not been taking libirum as prescribed , medically stable, risks of not taking medication discussed including seziures , dts and . patient aware Pertinent Past History: no h/o seizures, insomnia, anxieyt, depression, nicotine dependence - Physical Exam Results Vital Signs: Vital Signs Temperature 98.1 F 05/31/17 06:38 Pulse Rate 93 H 05/31/17 06:38 Respiratory Rate 20 05/31/17 06:38 Blood Pressure 134/75 05/31/17 06:38 O2 Sat by Pulse Oximetry (%) Laboratory Tests 05/29/17 05/29/17 05/29/17 07:00 07:00 07:00 WBC 6.6 RBC 4.49 Hgb 13.4 Hct 41.1 MCV 91.5 MCH 29.9 MCHC 32.7 RDW 12.7 Plt Count 268 MPV 8.1 Sodium 142 Potassium 3.6 Chloride 110 H Carbon Dioxide 24 Anion Gap 8 BUN 11 D Creatinine 0.9 Creat Clearance w eGFR > 60 Random Glucose 133 H D Calcium 8.7 Total Bilirubin 0.8 D AST 35 D ALT 79 H Alkaline Phosphatase 102 Total Protein 7.1 Albumin 3.4 Urine Color Urine Appearance Urine pH Ur Specific [place] Urine Protein Urine Glucose (UA) Urine Ketones Urine Blood Urine Nitrite Urine Bilirubin Urine Urobilinogen Ur Leukocyte Esterase Urine WBC (Auto) Urine RBC (Auto) Urine RBC Urine WBC Amorphous Urates Urine Bacteria Urine Mucus RPR Titer Nonreactive HIV 1&2 Antibody Screen HIV P24 Antigen 05/29/17 05/29/17 05/30/17 07:00 15:00 09:30 WBC RBC Hgb Hct MCV MCH MCHC RDW Plt Count MPV Sodium Potassium Chloride Carbon Dioxide Anion Gap BUN Creatinine Creat Clearance w eGFR Random Glucose Calcium Total Bilirubin AST ALT Alkaline Phosphatase Total Protein Albumin Urine Color Yellow Yellow Urine Appearance Cloudy Cloudy Urine pH 5.0 5.0 Ur Specific [place] 1.009 1.013 Urine Protein Negative Negative Urine Glucose (UA) Negative Negative Urine Ketones Negative Negative Urine Blood Negative 1+ H Urine Nitrite Negative Positive Urine Bilirubin Negative Negative Urine Urobilinogen Negative Negative Ur Leukocyte Esterase 1+ H 3+ H D Urine WBC (Auto) 289 Urine RBC (Auto) 1 Urine RBC 0-2 Urine WBC 40-60 Amorphous Urates Many Urine Bacteria Many Rare Urine Mucus Rare RPR Titer HIV 1&2 Antibody Screen Negative HIV P24 Antigen Negative abnormal u/u needs to follow up with his doctor in [place], patient aware, reviewed labwork Pertinent Admission Physical Exam Findings: withdrawal sx - Treatment Hospital Course: Detox Protocol Followed, Detoxed Safely, Responded well, Discharged Condition Good Patient has Accepted a Rehab Referral to: NO - is leaving for [place] to get away from people places and things - Medication Discharge Medications: Ambulatory Orders Paroxetine HCl [Paxil -] 10 mg PO DAILY 04/12/17 Risperidone [Risperdal -] 4 mg PO DAILY 04/12/17 - Diagnosis (1) Substance induced mood disorder Current Visit: Yes Status: Acute (2) History of schizophrenia Current Visit: Yes Status: Chronic (3) Alcohol dependence with uncomplicated withdrawal Current Visit: No Status: Chronic (4) Asthma Current Visit: No Status: Chronic Qualifiers: Asthma severity: mild Asthma persistence: intermittent Asthma complication type: uncomplicated Qualified Code(s): J45.20 - Mild intermittent asthma, uncomplicated (5) Cannabis dependence Current Visit: No Status: Chronic (6) Cocaine dependence, uncomplicated Current Visit: No Status: Chronic (7) Hepatitis C Current Visit: No Status: Chronic Qualifiers: Viral hepatitis chronicity: chronic Hepatic coma status: without hepatic coma Qualified Code(s): B18.2 - Chronic viral hepatitis C (8) Hypertension Current Visit: No Status: Chronic Qualifiers: Hypertension type: essential hypertension Qualified Code(s): I10 - Essential (primary) hypertension (9) Nicotine dependence Current Visit: No Status: Chronic Qualifiers: Nicotine product type: cigarettes Substance use status: uncomplicated Qualified Code(s): F17.210 - Nicotine dependence, cigarettes, uncomplicated - AMA Did Patient Leave Against Medical Advice: No
[2017-05-31] MEDS ORDERED: chlordiazePOXIDE HCL 10 MG CAPSULE PO SCH ×2 (11:00→23:00)
== END 2017-05-31 09:47 | disposition home or self-care (01) | DRG 774 ==
LOC: YASAS 21:55 → Y6N 23:47
PROVIDERS: ADMIT Internal Medicine; ATTEND Internal Medicine
PROC: HZ2ZZZZ Detoxification Services for Substance Abuse Treatment (ICD-10-PCS; principal; 2017-05-28)
DX: F10.230 Alcohol dependence with withdrawal, uncomplicated (principal); F14.20 Cocaine dependence, uncomplicated; F12.20 Cannabis dependence, uncomplicated; F17.210 Nicotine dependence, cigarettes, uncomplicated; F19.24 Other psychoactive substance dependence with psychoactive substance-induced mood disorder; F25.9 Schizoaffective disorder, unspecified; B18.2 Chronic viral hepatitis C; I10 Essential (primary) hypertension; J45.20 Mild intermittent asthma, uncomplicated; Z87.81 Personal history of (healed) traumatic fracture
CPT/HCPCS: 36415; 80053; 81003; 81015; 85027; 86593; 87389; 90732; 93005; 93010; G0009; J2794

== ENCOUNTER 2018-04-15 14:19 | Inpatient (IN) | payer OTHER ==
[2018-04-15 16:37] VITALS: BMI 32.5
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
[2018-04-15] MEDS ORDERED: IBUPROFEN 400 MG TABLET (FP) PO PRN (19:19)
[2018-04-15] MEDS ORDERED: MENTHOL/PHENOL 1 EACH UD MM PRN (19:19)
[2018-04-15] MEDS ORDERED: chlordiazePOXIDE HCL 25 MG CAPSULE PO ONE (19:19)
[2018-04-15] MEDS ORDERED: MAGNESIUM CITRATE 300 ML BOTTLE PO PRN (19:19)
[2018-04-15] MEDS ORDERED: chlordiazePOXIDE HCL 25 MG CAPSULE PO PRN (19:19)
[2018-04-15] MEDS ORDERED: MAGNESIUM HYDROX 2400MG/30ML ORAL SUSPENSION 30 ML CUP PO PRN (19:19)
[2018-04-15] MEDS ORDERED: NICOTINE POLACRILEX 2 MG GUM BUC PRN (19:19)
[2018-04-15] MEDS ORDERED: ACETAMINOPHEN 325 MG TABLET (FP) PO PRN (19:19)
[2018-04-15] MEDS ORDERED: MAG HYDROX/AL HYDROX/SIMETH 30 ML UNIT-DOSE CUP PO PRN (19:19)
[2018-04-15] MEDS ORDERED: LOPERAMIDE HCL 2 MG CAPSULE PO PRN (19:19)
[2018-04-15] MEDS ORDERED: MELATONIN 5 MG TABLETS PO PRN (22:00)
[2018-04-15] MEDS: THIAMINE HCL 100 MG TABLET (FP) PO SCH (22:55)
[2018-04-15] MEDS: chlordiazePOXIDE HCL 25 MG CAPSULE PO SCH (22:55)
[2018-04-16] MEDS: chlordiazePOXIDE HCL 25 MG CAPSULE PO SCH ×4 (05:43→22:39)
[2018-04-16] MEDS: NICOTINE 14 MG/24 HOURS TOPICAL PATCH TD SCH (10:28)
[2018-04-16] MEDS: PRENATAL VITAMINS W/ FOLIC ACID TABLET (FP) PO SCH (10:28)
[2018-04-16 10:31] LABS: HEMATOCRIT 41.2 % (35.4-49); HEMOGLOBIN 12.9 GM/dL (11.7-16.9); MCH 28.8 pg (25.7-33.7); MCHC 31.4 g/dl (32.0-35.9); MEAN CELL VOLUME 91.8 fl (80-96); MEAN PLT VOLUME 8.1 fl (7.5-11.1); PLATELET COUNT 244 K/MM3 (134-434); RBC 4.49 M/mm3 (4.00-5.60); RDW 12.9 % (11.9-15.9); WHITE BLOOD COUNT 5.9 K/mm3 (4.0-10.0)
[2018-04-16 10:45] LABS: ALBUMIN 3.1 g/dl (3.4-5.0); ALK PHOS 129 U/L (45-117); ANION GAP 7 MMOL/L (8-16); BILIRUBIN,TOTAL 0.6 mg/dL (0.2-1); BLOOD UREA NITROGEN 15 mg/dL (7-18); CALCIUM 8.8 mg/dL (8.5-10.1); CHLORIDE 108 mmol/L (98-107); CO2 27 mmol/L (21-32); GLUCOSE,RANDOM 138 mg/dL (74-106); POTASSIUM 3.8 mmol/L (3.5-5.1); SGOT/AST 30 U/L (15-37); SGPT/ALT 50 U/L (13-61); SODIUM 143 mmol/L (136-145); TOT PROT 6.5 g/dl (6.4-8.2)
--- NOTE | 2018-04-16 10:47 | EKG ---
Test Reason : Blood Pressure : / mmHG Vent. Rate : 071 BPM Atrial Rate : 071 BPM P-R Int : 192 ms QRS Dur : 094 ms QT Int : 406 ms P-R-T Axes : 046 026 030 degrees QTc Int : 441 ms NORMAL SINUS RHYTHM NORMAL ECG WHEN COMPARED WITH ECG OF 29-MAY-2017 00:50, NO SIGNIFICANT CHANGE WAS FOUND Confirmed by SAI NGUYỄN MD ([id number]) on 04/16/2018 10:47:11 AM Referred By: Confirmed By:SAI NGUYỄN MD
--- NOTE | 2018-04-16 12:37 | PN ---
S CIWA - CIWA Score Nausea/Vomitin Muscle Tremors: 4-Moderate,w/Arms Extend Anxiety: 4-Mod. Anxious/Guarded Agitation: 4-Moderately Restless Paroxysmal Sweats: 3 Orientation: 0-Oriented Tacttile Disturbances: 0-None Auditory Disturbances: 0-None Visual Disturbances: 0-None Headache: 0-None Present CIWA-Ar Total Score: 18 BHS Progress Note (SOAP) Subjective: Chills, sweating, interrupted sleep Objective: 04/16/18 12:33 Last Vital Signs Temp Pulse Resp BP Pulse Ox 96.6 F L 90 20 148/86 04/16/18 10:53 04/16/18 10:53 04/16/18 10:53 04/16/18 10:53 Elevated b/p (has h/o HTN: not on meds) Laboratory Tests 04/16/18 04/16/18 04/16/18 07:00 07:00 07:00 WBC 5.9 RBC 4.49 Hgb 12.9 Hct 41.2 MCV 91.8 MCH 28.8 MCHC 31.4 L RDW 12.9 Plt Count 244 MPV 8.1 Sodium 143 Potassium 3.8 Chloride 108 H Carbon Dioxide 27 Anion Gap 7 L BUN 15 Creatinine 1.0 Creat Clearance w eGFR > 60 Random Glucose 138 H Calcium 8.8 Total Bilirubin 0.6 AST 30 ALT 50 Alkaline Phosphatase 129 H Total Protein 6.5 Albumin 3.1 L HIV 1&2 Antibody Screen Negative HIV P24 Antigen Negative Labs reviewed: serum glucose 138mg/dl Assessment: 04/16/18 12:36 Withdrawal symptoms Noted with hyperglycemia H/O HTN: not on medication Plan: Continue detox Hyperglycemia: denies DM; repeat fasting glucose, send HbA1c HTN: no home medication, start clonidine 0.1mg PO q8hr prn, consider starting routine antihypertensive medication if warranted
[2018-04-16] MEDS ORDERED: cloNIDine HCL 0.1 MG TABLET PO PRN (12:55)
--- NOTE | 2018-04-16 17:29 | CONSULT ---
[facility] Psychiatric Consult - Data Date of interview: 04/16/18 Admission source: [facility] Identifying data: Another admission to [facility] for this 57 y/o AA male seeking detoxification treatment on for alcohol,cocaine and cannabis dependence.Patient is single without children,homeless,unemployed and supported on SSI benefits. Substance Abuse History: Confirmed by patient in this interview.Details in current [facility] report : Smoking history: Current every day smoker. Have you smoked in the past 12 months: Yes. Aproximately how many cigarettes per day: 10. Cigars Per Day: 0. Hx Chewing Tobacco Use: No. Initiated information on smoking cessation: Yes. 'Breaking Loose' booklet given: 04/15/18. - Substance & Tx. History. Hx Alcohol Use: Yes. Hx Substance Use: Yes. Substance Use Type : Alcohol, Cocaine, Marijuana. Hx Substance Use Treatment: Yes (detox, rehab, AA/NA). - Substances Abused. Alcohol. Route: Oral. Frequency: Daily. Amount used: 1 pint liquor w/ 1 6 pk beer. Age of first use: 17. Date of Last Use: 04/15/18. Marijuana/Hashish. Route: Smoking. Frequency: Daily. Amount used: 1 dime bag. Age of first use: 16. Date of Last Use: 04/15/18. * * Cocaine. Route: Smoking. Frequency: 1-2 times per week. Amount used: $30. Age of first use: 51. Date of Last Use: 04/15/18 Medical History: Hypertension,hepatitis C,bronchial asthma and a history of neurosurgery (skull fracture) + orthosurgery (jaw).No allergies reported. Psychiatric History: History of " more than 20 psychiatric hospitalizations ". Patient is diagnosed with Schizophrenia. Maintained on a regimen of risperdal + paxil (3 mg/hs and 10 mg respectively).Mr Orr is known to [facility] + [facility] ([facility]). Admits to non-adherence to psychiatric OPD care.Date of last intake of medications : undetermined.Patient reports one suicide attempt (1999) via overdose with " heart " medications ( trigger : of mother). Physical/Sexual Abuse/Trauma History: Patient denies. Additional Comment: Urine Drug Screen Results: THC-Marijuana, HILL-Cocaine.Noted. Mental Status Exam - Mental Status Exam Alert and Oriented to: Time, Place, Person Cognitive Function: Good Patient Appearance: Well Groomed Mood: Nervous, Withdrawn Affect: Mood Congruent Patient Behavior: Fatigued, Cooperative Speech Pattern: Clear Voice Loudness: Normal Thought Process: Goal Oriented Thought Disorder: Not Present Hallucinations: Denies Suicidal Ideation: Denies Homicidal Ideation: Denies Insight/Judgement: Poor Sleep: Poorly Appetite: Good Muscle strength/Tone: Normal Gait/Station: Normal Psychiatric Findings - Problem List ([place] 1, 2,3) (1) Alcohol dependence with uncomplicated withdrawal Current Visit: Yes Status: Acute (2) Cannabis dependence Current Visit: Yes Status: Acute (3) Cocaine dependence, uncomplicated Current Visit: Yes Status: Acute (4) Nicotine dependence Current Visit: Yes Status: Acute Qualifiers: Nicotine product type: cigarettes Substance use status: uncomplicated Qualified Code(s): F17.210 - Nicotine dependence, cigarettes, uncomplicated (5) Substance induced mood disorder Current Visit: Yes Status: Acute (6) Schizophrenia Current Visit: Yes Status: Chronic Comment: By history. Non compliant with psychiatric OPD care. (7) Insomnia Current Visit: Yes Status: Acute - Initial Treatment Plan Initial Treatment Plan: Psychoeducation. Detoxification in progress. Sleep hygiene. Group + individual therapy. AA meetings. Medications : risperdal 0.5 mg po bid (Requested by patient). Side effects/benefits discussed with the patient. Made aware of potential for gynecomastia,galactorrhea,sexual impotence and amnormal involuntary movements. Observation.
[2018-04-16] MEDS: THIAMINE HCL 100 MG TABLET (FP) PO SCH (22:39)
[2018-04-16] MEDS: risperiDONE 0.5 MG TABLET (FP) PO SCH (22:39)
[2018-04-16 23:07] LABS: URINE APPEARANCE CLEAR; URINE BILIRUBIN NEGATIVE (<2.0 mg/dL); URINE COLOR STRAW; URINE GLUCOSE (UA) NEGATIVE (NEGATIVE); URINE KETONE NEGATIVE (NEGATIVE); URINE LEUK ESTERASE NEGATIVE (NEGATIVE); URINE NITRITE NEGATIVE (NEGATIVE); URINE PROTEIN NEGATIVE (NEGATIVE); URINE UROBILINOGEN NEGATIVE mg/dL (0.2-1.0)
[2018-04-17] MEDS: chlordiazePOXIDE HCL 25 MG CAPSULE PO SCH ×3 (06:20→17:41)
[2018-04-17] MEDS ORDERED: PARoxetine HCL 10 MG TABLET (FP) PO SCH (10:00)
[2018-04-17] MEDS: PRENATAL VITAMINS W/ FOLIC ACID TABLET (FP) PO SCH (10:32)
[2018-04-17] MEDS: risperiDONE 0.5 MG TABLET (FP) PO SCH ×2 (10:32→22:29)
[2018-04-17] MEDS: NICOTINE 14 MG/24 HOURS TOPICAL PATCH TD SCH (10:32)
--- NOTE | 2018-04-17 12:09 | PN ---
S CIWA - CIWA Score Nausea/Vomitin Muscle Tremors: 3 Anxiety: 3 Agitation: 3 Paroxysmal Sweats: 3 Orientation: 0-Oriented Tacttile Disturbances: 0-None Auditory Disturbances: 0-None Visual Disturbances: 0-None Headache: 1-Very Mild CIWA-Ar Total Score: 15 S Progress Note (SOAP) Subjective: Nervousness, tremor, sweating Objective: 04/17/18 12:07 Last Vital Signs Temp Pulse Resp BP Pulse Ox 96.4 F L 89 18 123/81 04/17/18 10:33 04/17/18 10:33 04/17/18 10:33 04/17/18 10:33 Laboratory Tests 04/16/18 04/16/18 04/16/18 07:00 07:00 07:00 WBC 5.9 RBC 4.49 Hgb 12.9 Hct 41.2 MCV 91.8 MCH 28.8 MCHC 31.4 L RDW 12.9 Plt Count 244 MPV 8.1 Sodium 143 Potassium 3.8 Chloride 108 H Carbon Dioxide 27 Anion Gap 7 L BUN 15 Creatinine 1.0 Creat Clearance w eGFR > 60 Random Glucose 138 H Fasting Glucose Hemoglobin A1c % Calcium 8.8 Total Bilirubin 0.6 AST 30 ALT 50 Alkaline Phosphatase 129 H Total Protein 6.5 Albumin 3.1 L Urine Color Urine Appearance Urine pH Ur Specific Oxly Urine Protein Urine Glucose (UA) Urine Ketones Urine Blood Urine Nitrite Urine Bilirubin Urine Urobilinogen Ur Leukocyte Esterase RPR Titer Nonreactive HIV 1&2 Antibody Screen HIV P24 Antigen 04/16/18 04/16/18 04/17/18 07:00 22:56 07:00 WBC RBC Hgb Hct MCV MCH MCHC RDW Plt Count MPV Sodium Potassium Chloride Carbon Dioxide Anion Gap BUN Creatinine Creat Clearance w eGFR Random Glucose Fasting Glucose 89 Hemoglobin A1c % Calcium Total Bilirubin AST ALT Alkaline Phosphatase Total Protein Albumin Urine Color Straw Urine Appearance Clear Urine pH 7.0 D Ur Specific Ox[place] 1.009 L Urine Protein Negative Urine Glucose (UA) Negative Urine Ketones Negative Urine Blood Negative Urine Nitrite Negative Urine Bilirubin Negative Urine Urobilinogen Negative Ur Leukocyte Esterase Negative RPR Titer HIV 1&2 Antibody Screen Negative HIV P24 Antigen Negative 04/17/18 07:00 WBC RBC Hgb Hct MCV MCH MCHC RDW Plt Count MPV Sodium Potassium Chloride Carbon Dioxide Anion Gap BUN Creatinine Creat Clearance w eGFR Random Glucose Fasting Glucose Hemoglobin A1c % 4.9 Calcium Total Bilirubin AST ALT Alkaline Phosphatase Total Protein Albumin Urine Color Urine Appearance Urine pH Ur Specific Oxly Urine Protein Urine Glucose (UA) Urine Ketones Urine Blood Urine Nitrite Urine Bilirubin Urine Urobilinogen Ur Leukocyte Esterase RPR Titer HIV 1&2 Antibody Screen HIV P24 Antigen Labs reviewed Assessment: 04/17/18 12:08 Withdrawal symptoms Plan: Continue detox Encouraged PO water intake
[2018-04-17] MEDS: THIAMINE HCL 100 MG TABLET (FP) PO SCH (22:29)
[2018-04-17] MEDS: chlordiazePOXIDE 5 MG CAPSULE PO SCH (22:30)
[2018-04-18] MEDS: chlordiazePOXIDE 5 MG CAPSULE PO SCH (06:00)
[2018-04-18 06:47] VITALS: BP 108/64; PULSE 81; TEMP 97.5
--- NOTE | 2018-04-18 11:40 | DS ---
[facility] Detox Discharge Summary Admission Date: 04/15/18 Discharge Date: 04/18/18 - History Present History: Alcohol Dependence, Cannabis Dependence, Cocaine Dependence Pertinent Past History: Asthma HTN Hepatitis C - Physical Exam Results Vital Signs: Vital Signs Temperature 97.5 F L 04/18/18 06:46 Pulse Rate 81 04/18/18 06:46 Respiratory Rate 18 04/18/18 06:46 Blood Pressure 108/64 04/18/18 06:46 O2 Sat by Pulse Oximetry (%) Pertinent Admission Physical Exam Findings: Withdrawal symptoms Laboratory Tests 04/16/18 04/16/18 04/16/18 07:00 07:00 07:00 WBC 5.9 RBC 4.49 Hgb 12.9 Hct 41.2 MCV 91.8 MCH 28.8 MCHC 31.4 L RDW 12.9 Plt Count 244 MPV 8.1 Sodium 143 Potassium 3.8 Chloride 108 H Carbon Dioxide 27 Anion Gap 7 L BUN 15 Creatinine 1.0 Creat Clearance w eGFR > 60 Random Glucose 138 H Fasting Glucose Hemoglobin A1c % Calcium 8.8 Total Bilirubin 0.6 AST 30 ALT 50 Alkaline Phosphatase 129 H Total Protein 6.5 Albumin 3.1 L Urine Color Urine Appearance Urine pH Ur Specific [place] Urine Protein Urine Glucose (UA) Urine Ketones Urine Blood Urine Nitrite Urine Bilirubin Urine Urobilinogen Ur Leukocyte Esterase RPR Titer Nonreactive HIV 1&2 Antibody Screen HIV P24 Antigen 04/16/18 04/16/18 04/17/18 07:00 22:56 07:00 WBC RBC Hgb Hct MCV MCH MCHC RDW Plt Count MPV Sodium Potassium Chloride Carbon Dioxide Anion Gap BUN Creatinine Creat Clearance w eGFR Random Glucose Fasting Glucose 89 Hemoglobin A1c % Calcium Total Bilirubin AST ALT Alkaline Phosphatase Total Protein Albumin Urine Color Straw Urine Appearance Clear Urine pH 7.0 D Ur Specific [place] 1.009 L Urine Protein Negative Urine Glucose (UA) Negative Urine Ketones Negative Urine Blood Negative Urine Nitrite Negative Urine Bilirubin Negative Urine Urobilinogen Negative Ur Leukocyte Esterase Negative RPR Titer HIV 1&2 Antibody Screen Negative HIV P24 Antigen Negative 04/17/18 07:00 WBC RBC Hgb Hct MCV MCH MCHC RDW Plt Count MPV Sodium Potassium Chloride Carbon Dioxide Anion Gap BUN Creatinine Creat Clearance w eGFR Random Glucose Fasting Glucose Hemoglobin A1c % 4.9 Calcium Total Bilirubin AST ALT Alkaline Phosphatase Total Protein Albumin Urine Color Urine Appearance Urine pH Ur Specific [place] Urine Protein Urine Glucose (UA) Urine Ketones Urine Blood Urine Nitrite Urine Bilirubin Urine Urobilinogen Ur Leukocyte Esterase RPR Titer HIV 1&2 Antibody Screen HIV P24 Antigen Labs reviewed - Medication Discharge Medications: Ambulatory Orders Paroxetine HCl [Paxil -] 10 mg PO DAILY 04/12/17 Risperidone [Risperdal -] 4 mg PO DAILY 04/12/17 - Diagnosis (1) Depression Status: Chronic (2) Alcohol dependence with uncomplicated withdrawal Status: Acute (3) Cannabis dependence Status: Acute (4) Cocaine dependence, uncomplicated Status: Acute (5) Hypertension Status: Chronic Qualifiers: Hypertension type: unspecified Qualified Code(s): I10 - Essential (primary ) hypertension (6) Nicotine dependence Status: Acute Qualifiers: Nicotine product type: cigarettes Substance use status: uncomplicated Qualified Code(s): F17.210 - Nicotine dependence, cigarettes, uncomplicated (7) Asthma Status: Chronic Qualifiers: Asthma severity: unspecified severity Asthma persistence: intermittent Asthma complication type: uncomplicated Qualified Code(s): J45.20 - Mild intermittent asthma, uncomplicated (8) Hepatitis C Status: Chronic Qualifiers: Viral hepatitis chronicity: chronic Hepatic coma status: without hepatic coma Qualified Code(s): B18.2 - Chronic viral hepatitis C - AMA Did Patient Leave Against Medical Advice: Yes (Call 911 or proceed to ER stat if feels sick or withdrawal symptoms)
[2018-04-18] MEDS ORDERED: chlordiazePOXIDE HCL 10 MG CAPSULE PO SCH (23:00)
== END 2018-04-18 09:19 | disposition left against medical advice (07) | DRG 770 ==
LOC: YASAS 14:19 → Y3N 19:17
PROC: HZ2ZZZZ Detoxification Services for Substance Abuse Treatment (ICD-10-PCS; principal; 2018-04-15)
DX: F10.230 Alcohol dependence with withdrawal, uncomplicated (principal); F14.20 Cocaine dependence, uncomplicated; F12.20 Cannabis dependence, uncomplicated; F17.210 Nicotine dependence, cigarettes, uncomplicated; F32.9 Major depressive disorder, single episode, unspecified; F19.24 Other psychoactive substance dependence with psychoactive substance-induced mood disorder; F20.9 Schizophrenia, unspecified; I10 Essential (primary) hypertension; J45.20 Mild intermittent asthma, uncomplicated; B18.2 Chronic viral hepatitis C; R73.9 Hyperglycemia, unspecified; G47.00 Insomnia, unspecified; R00.1 Bradycardia, unspecified; E66.9 Obesity, unspecified; Z68.32 Body mass index [BMI] 32.0-32.9, adult; Z59.0 Homelessness
CPT/HCPCS: 36415; 80053; 81003; 82947; 83036; 85027; 86593; 87389; 93005; 93010; J0735